=== PATIENT | female | born 1970 | race Two or more races ===

== ENCOUNTER 2020-01-20 19:47 | Inpatient (IN) | payer OTHER ==
[~2020-01-20] VITALS: Ht 162.6 cm; Wt 53.5 kg
--- NOTE | 2020-01-20 20:33 | NUR ---
[facility] TO ER BED 6. AWAKE BUT NON VERBAL. NOT RESP DISTRESS, BREATHING EVEN AND UNLABORED. BROUGHT IN FOR REPORT OF DESATURATION IN THE LOW 80%. PT ARRIVED ON THE SIMPLE MASK ON 10LPM. NOTED SATTING AT 96%-98%. PT IS ALSO NOTED WITH A RECTAL TEMP OF 99.8. MD WAS AT THE BEDSIDE FOR EVAL. ORDERS RECEIVED NOTED AND CARRIED OUT. IV LINE ALREADY ESTABLISHED BY EMS ON LFA 20G. ASSOCIATE MEDIA PLANNER AT BEDSIDE FOR BLOOD DRAW. COVID SWAB DONE AND SENT TO LAB
[2020-01-20 20:41] LABS: BASOPHILS % (AUTO) 0.2 % (0.0-2.0); EOSINOPHILS % (AUTO) 0.2 % (0.0-6.0); HEMATOCRIT 39 % (33-45); HEMOGLOBIN 12.8 g/dL (11.5-14.8); LYMPHOCYTES % (AUTO) 30.8 % (20.0-44.0); MEAN CORPUSCULAR HGB CONC 33 g/dl (31.0-36.0); MEAN CORPUSCULAR VOLUME 90 fL (82-100); MONOCYTES # (AUTO) 0.3 /CMM (0.1-1.30); NEUTROPHILS # (AUTO) 4.2 /CMM (1.8-8.9); NEUTROPHILS % (AUTO) 63.8 % (43.0-81.0); PLATELET COUNT (AUTO) 185 /CMM (150-450); WHITE BLOOD COUNT (AUTO) 6.6 K/uL (4.3-11.0)
[2020-01-20 21:02] LABS: ALANINE AMINOTRANSFERASE 157 U/L (12-78); ALKALINE PHOSPHATASE 100 U/L (46-116); ASPARTATE AMINOTRANSFERASE 74 U/L (15-37); B-TYPE NATRIURETIC PEPTIDE 149 PG/ML (0-125); BILIRUBIN,DIRECT 0.1 mg/dL (0.0-0.2); BILIRUBIN,TOTAL 0.5 mg/dL (0.2-1.0); CALCIUM, SERUM 9.1 mg/dL (8.5-10.1); CARBON DIOXIDE 28 mmol/L (21-32); CHLORIDE 104 mmol/L (98-107); CREATININE 0.4 mg/dL (0.6-1.3); GLUCOSE 112 mg/dL (74-106); POTASSIUM 3.4 mmol/L (3.5-5.1); SODIUM SERUM 142 mmol/L (136-145); UREA NITROGEN, BLOOD 20 mg/dL (7-18)
--- NOTE | 2020-01-20 21:34 | NUR ---
[facility] 12 MIDNIGHT SHOT BAGGER
--- NOTE | 2020-01-20 23:25 | NUR ---
CANCELLED TRANSPORTATION W/ [facility]
--- NOTE | 2020-01-20 23:38 | NUR ---
REPORT GIVEN TO BENNY GOLDBERG FOR SAURAV
[2020-01-21] VITALS (8 sets, daily range): BP systolic 95–109; BP diastolic 60–79
[2020-01-21] MEDS ORDERED: ACETAMINOPHEN 325 MG TABLET PO PRN
[2020-01-21] MEDS ORDERED: Z GUARD REMEDY 2 OZ OINT TP PRN
[2020-01-21] MEDS ORDERED: ONDANSETRON HCL/PF 4 MG/2 ML VIAL IVP PRN
--- NOTE | 2020-01-21 00:11 | NUR ---
PT TRANSFERRED TO ROOM VIA ACLS PROTOCOL
[2020-01-21 02:43] LABS: ABG BASE EXCESS 3.8 mmol/L; ABG OXYGEN SATURATION 96.5 % (92.0-98.5); ABG PH 7.476 (7.350-7.450); ABG PO2 89.7 mmHg (75.0-100.0); AaDO2 296.3 mmHg; COHb 0.4 % (0.5-1.5); MetHb 0.3 % (0.0-1.5); O2Hb 95.8 % (94.0-97.0); SITE, ABG Right Radial; VENT MODE, BG SIMPLE MASK 10L
[2020-01-21] MEDS ORDERED: ACET160E36 GT (02:49)
[2020-01-21] MEDS ORDERED: ASCO500C16 GT (02:49)
[2020-01-21] MEDS ORDERED: AMLO2.5T4 PO (02:49)
[2020-01-21] MEDS ORDERED: MULT-754 GT (02:49)
[2020-01-21] MEDS ORDERED: LACT-209 GT (02:49)
[2020-01-21] MEDS ORDERED: METO25TA6 PO (02:49)
[2020-01-21] MEDS ORDERED: HYDR-4384 GT (02:49)
[2020-01-21] MEDS ORDERED: ESCI10TA PO (02:49)
[2020-01-21] MEDS ORDERED: ZINC1CAP3 GT (02:49)
[2020-01-21] MEDS ORDERED: JEVITY 1.2 CAL 1,000 ML BOTTLE GT PRN (04:30)
[2020-01-21] MEDS ORDERED: BISA10SU11 RC (07:43)
[2020-01-21] MEDS ORDERED: MULT-447 GT (07:43)
[2020-01-21] MEDS ORDERED: POLY17PO4 GT (07:43)
[2020-01-21] MEDS ORDERED: GUAI100S11 GT (07:43)
[2020-01-21] MEDS ORDERED: HYDR-3976 GT (07:43)
[2020-01-21 08:02] LABS: BASOPHILS % (AUTO) 0.1 % (0.0-2.0); EOSINOPHILS % (AUTO) 0.1 % (0.0-6.0); HEMATOCRIT 35 % (33-45); HEMOGLOBIN 11.7 g/dL (11.5-14.8); LYMPHOCYTES % (AUTO) 23.6 % (20.0-44.0); MEAN CORPUSCULAR HGB CONC 33 g/dl (31.0-36.0); MEAN CORPUSCULAR VOLUME 90 fL (82-100); MONOCYTES # (AUTO) 0.4 /CMM (0.1-1.30); MONOCYTES % (AUTO) 4.9 % (2.0-12.0); NEUTROPHILS # (AUTO) 6.1 /CMM (1.8-8.9); NEUTROPHILS % (AUTO) 71.3 % (43.0-81.0); PLATELET COUNT (AUTO) 163 /CMM (150-450); RED BLOOD CELL COUNT(AUTO) 3.89 MIL/uL (4.0-5.2); WHITE BLOOD COUNT (AUTO) 8.6 K/uL (4.3-11.0)
[2020-01-21 08:18] LABS: CALCIUM, SERUM 8.9 mg/dL (8.5-10.1); CREATININE 0.4 mg/dL (0.6-1.3); POTASSIUM 3.4 mmol/L (3.5-5.1)
[2020-01-21 08:22] LABS: ALBUMIN 2.7 g/dL (3.4-5.0); BILIRUBIN,TOTAL 0.6 mg/dL (0.2-1.0); MAGNESIUM 2.2 mg/dL (1.8-2.4); PHOSPHORUS 3.5 mg/dL (2.5-4.9); TOTAL PROTEIN, SERUM 6.4 g/dL (6.4-8.2)
[2020-01-21 08:29] LABS: THYROID STIMULATING HORMONE 0.616 uIU/mL (0.358-3.74)
[2020-01-21] MEDS ORDERED: POTASSIUM CHLORIDE 20 MEQ POWDER PACKET GT ONE (10:00)
[2020-01-21] MEDS: CHOLECALCIFEROL 1,000 UNIT TABLET (VIT D3) GT SCH (10:37)
[2020-01-21] MEDS: ESCITALOPRAM OXALATE (10 MG) 10 MG TABLET PO SCH (10:37)
[2020-01-21] MEDS: ZINC SULFATE 220 MG CAPSULE GT SCH (10:37)
[2020-01-21] MEDS: DEXAMETHASONE SOD PHOSPHATE 10 MG/ML VIAL IV SCH (10:37)
[2020-01-21] MEDS: METOPROLOL TARTRATE 25 MG TABLET PO SCH ×2 (10:39→18:14)
[2020-01-21] MEDS: ENOXAPARIN SODIUM 40 MG/0.4 ML DISP.SYRIN SQ SCH (10:41)
--- NOTE | 2020-01-21 10:47 | NUR ---
[facility] [place] [phone] Staff states according to their records ,patient got her Flu Vaccine 01/12/2020
--- NOTE | 2020-01-21 11:14 | NUR ---
WOUND CARE CONSULT: REVIEWED CHART, NURSING DOCUMENTATION AND PHOTOS WHICH INDICATE RASH TO BUTTOCKS AND PERINEUM, INTACT DEEP TISSUE INJURY TO SACRUM AND ESCHAR TO BACK OF HEAD, ALL PRESENT ON ADMISSION. RECOMMENDATIONS MADE FOR WOUND CARE AND SKIN PROTECTION. RECOMMEND SURGICAL CONSULT. DR MAIRA THRASHER NOTIFIED OF CONSULT REQUEST. PT IS ON [facility]SE[facility] ISOFLEX LOW AIRLOSS BED. MD IN AGREEMENT WITH PLAN OF CARE.
[2020-01-21] MEDS: ACETYLCYSTEINE 20% SOLN 800 MG/4 ML VIAL NEB SCH ×2 (15:30→23:12)
[2020-01-21] MEDS: ALBUTEROL HALF STRENGTH 1.25 MG/3 ML VIAL.NEB NEB SCH ×2 (15:30→23:12)
--- NOTE | 2020-01-21 16:38 | NUR ---
RT NOTE PER COVID PROTOCOL NO AEROSOL WAS GIVEN
[2020-01-21] MEDS: CLOTRIMAZOLE 1% 15 GM TUBE TP SCH (18:14)
[2020-01-21] MEDS: JEVITY 1.2 CAL 1,000 ML BOTTLE GT PRN (18:20)
--- NOTE | 2020-01-21 19:29 | NUR ---
RN NOTES PATIENT IN BED RESTING NO SOB OR ACUTE DISTRESS NOTED. ALL DUE MEDICATIONS ADMINISTERED. ALL NEEDS MET. NO ACUTE CHANGES DURING AM SHIFT. SAFETY MEASURES IN PLACE. ENDORSED CARE TO PM SHIFT.
--- NOTE | 2020-01-21 19:35 | NUR ---
INFORMATION TECHNOLOGY INTERNSHIP OPENING NOTE: Patient in bed awake and oriented x2. Patient able to speak but in a soft voice. Patient breathing well on 2L Oxygen via nasal canula. SCDs on. No SOB or acute respiratory distress noted. Noted IV access on left forearm 20 gauge, dressing dry and intact, patent, no redness, or infiltration. Safety precaution is in place, bed is in the lowest level, bed is locked, alarm is on, side rails x2 are up, and call light is within reach. Will continue to monitor.
[2020-01-22] VITALS (7 sets, daily range): BP systolic 97–182; BP diastolic 63–98
--- NOTE | 2020-01-22 06:38 | NUR ---
ASSOCIATE PROFESSOR OF MUSIC CLOSING NOTE: Patient in bed comfortably awake. All needs were met. Patient is breathing well with no signs of respiratory distress or SOB. Safety measures is maintained, bed is in the lowest level, bed is locked, alarm is on, side rails x2 are up, and call light is within reach. Will endorse to next shift.
[2020-01-22] MEDS: ACETYLCYSTEINE 20% SOLN 800 MG/4 ML VIAL NEB SCH ×3 (07:35→23:05)
[2020-01-22] MEDS: ALBUTEROL HALF STRENGTH 1.25 MG/3 ML VIAL.NEB NEB SCH ×3 (07:35→23:05)
[2020-01-22 07:39] LABS: HEMATOCRIT 37 % (33-45); HEMOGLOBIN 12.2 g/dL (11.5-14.8); LYMPHOCYTES # (AUTO) 1.1 /CMM (0.8-4.8); MEAN CORPUSCULAR HGB CONC 33 g/dl (31.0-36.0); MEAN CORPUSCULAR VOLUME 90 fL (82-100); MONOCYTES # (AUTO) 0.3 /CMM (0.1-1.30); MONOCYTES % (AUTO) 5.3 % (2.0-12.0); NEUTROPHILS # (AUTO) 4.9 /CMM (1.8-8.9); NEUTROPHILS % (AUTO) 77.7 % (43.0-81.0); PLATELET COUNT (AUTO) 157 /CMM (150-450); WHITE BLOOD COUNT (AUTO) 6.3 K/uL (4.3-11.0)
--- NOTE | 2020-01-22 07:40 | NUR ---
RN OPENING NOTE Patient is resting in bed, A/ox1, able to open eyes when name is called. Tele monitor SR. Patient is bedbound, turned and repositioned. IV line in the LFA#20g is clean and intact flushing well. GTF running Jevity 1.2 @70mls/[id number], flushing well, with 5mls residual. Isolation precautions due to positive covid. Bed is in lowest position, side rails x3 in upright position, fall safety and aspiration precautions enforced. Will continue with plan of care.
[2020-01-22 08:07] LABS: CALCIUM, SERUM 9.6 mg/dL (8.5-10.1); CREATININE 0.4 mg/dL (0.6-1.3); POTASSIUM 3.9 mmol/L (3.5-5.1)
[2020-01-22] MEDS: ZINC SULFATE 220 MG CAPSULE GT SCH (08:21)
[2020-01-22] MEDS: DEXAMETHASONE SOD PHOSPHATE 10 MG/ML VIAL IV SCH (08:21)
[2020-01-22] MEDS: ESCITALOPRAM OXALATE (10 MG) 10 MG TABLET PO SCH (08:22)
[2020-01-22] MEDS: CHOLECALCIFEROL 1,000 UNIT TABLET (VIT D3) GT SCH (08:22)
[2020-01-22] MEDS: METOPROLOL TARTRATE 25 MG TABLET PO SCH ×2 (08:22→16:13)
[2020-01-22] MEDS: ENOXAPARIN SODIUM 40 MG/0.4 ML DISP.SYRIN SQ SCH (08:41)
[2020-01-22] MEDS: JEVITY 1.2 CAL 1,000 ML BOTTLE GT PRN (09:40)
[2020-01-22] MEDS: CLOTRIMAZOLE 1% 15 GM TUBE TP SCH ×2 (10:19→16:09)
[2020-01-22] MEDS: LEVOFLOXACIN (250MG) 250 MG TABLET PO SCH (10:31)
--- NOTE | 2020-01-22 16:17 | NUR ---
DIOMEDES called [facility] to provide more information regarding patient as patient reports to be alert and oriented x1. Supervisor Pipelines did not want to provide name but provide Administrators contact information Allie . Per grid trimmer, Allie is not in at the moment and may not answer work cell. SW to attempt tomorrow 01/22 to reach Allie to provide more information. SW to remain available for all needs regarding this patient.
--- NOTE | 2020-01-22 18:17 | NUR ---
RN CLOSING NOTE Patient is resting in bed, A/ox1, able to open eyes when name is called, can no head "yes" or "no". Tele monitor SR. Patient is bedbound, turned and repositioned, kept clean and dry, skin protection measures implemented, wound care as ordered. IV line in the LFA#20g is clean and intact flushing well. GTF running Jevity 1.2 @70mls/[id number], OFF @ 1400 ON @ 1800, flushing well, with 0mls residual. All patient needs met, all due medications given. Isolation precautions due to positive covid. Bed is in lowest position, side rails x3 in upright position, fall safety and aspiration precautions enforced. Will continue with plan of care.
[2020-01-23 00:38] VITALS: BP 118/78
[2020-01-23 04:34] VITALS: BP 138/79
[2020-01-23] MEDS: JEVITY 1.2 CAL 1,000 ML BOTTLE GT PRN ×2 (05:47→23:38)
--- NOTE | 2020-01-23 06:35 | NUR ---
TELEMETRY TECH NOTES PATIENT IN BED, ASLEEP, ALERT AND ORIENTED X 1. ABLE TO NOD HEAD. BREATHING EVEN AND UNLABORED ON 2L NC. SHOWS NO SIGNS OF ACUTE RESPIRATORY DISTRESS. NO ACUTE PAIN. TELE MONITOR SR. GTUBE RUNNING JEVITY 1.2 AT 70ML/HR. NO RESIDUALS. IV ON L FA 20G SL. SHOWS NO SIGNS OF INFILTRATION, NO REDNESS. ALL DUE MEDICATIONS GIVEN. ALL NEEDS ATTENDED TO. ISOLATION PRECAUTIONS IN PLACE. SAFETY PRECAUTIONS IN PLACE. BED IN LOWEST POSITION, LOCKED, AND CALL LIGHT KEPT WITHIN REACH. WILL ENDORSE TO ONCOMING NURSE.
--- NOTE | 2020-01-23 07:27 | NUR ---
TELE/RN OPENING NOTES RECEIVED PATIENT ON BED, PATIENT IN NO APPARENT RESPIRATORY DISTRESS NOTED. NO SIGN AND SYMPTOM OF PAIN NOTED. WILL CONTINUE TO MONITOR. Addendum: 01/23/20 at 0732 by RADHA MUKHERJEE RN DUPLICATE
--- NOTE | 2020-01-23 07:32 | NUR ---
TELE/RN OPENING NOTES RECEIVED PATIENT ON BED, AWAKE, ALERT AND ORIENTED X1. PATIENT IN NO APPARENT RESPIRATORY DISTRESS NOTED. TELE MONITOR IN PLACED READING SINUS TACH WITH ARRHYTHMIA 103 BPM. NO SIGN AND SYMPTOM OF PAIN NOTED. WILL CONTINUE TO MONITOR.
[2020-01-23] MEDS: ACETYLCYSTEINE 20% SOLN 800 MG/4 ML VIAL NEB SCH ×3 (07:35→23:30)
[2020-01-23] MEDS: ALBUTEROL HALF STRENGTH 1.25 MG/3 ML VIAL.NEB NEB SCH ×3 (07:35→23:30)
[2020-01-23 08:00] VITALS: BP 155/95
[2020-01-23] MEDS: ZINC SULFATE 220 MG CAPSULE GT SCH (08:22)
[2020-01-23] MEDS: CHOLECALCIFEROL 1,000 UNIT TABLET (VIT D3) GT SCH (08:22)
[2020-01-23] MEDS: ESCITALOPRAM OXALATE (10 MG) 10 MG TABLET PO SCH (08:23)
[2020-01-23] MEDS: ENOXAPARIN SODIUM 40 MG/0.4 ML DISP.SYRIN SQ SCH (08:29)
--- NOTE | 2020-01-23 08:30 | NUR ---
RT NOTE PER COVID PROTOCOL NO AEROSOL TXS GIVEN
[2020-01-23] MEDS: DEXAMETHASONE SOD PHOSPHATE 10 MG/ML VIAL IV SCH (08:52)
[2020-01-23] MEDS: METOPROLOL TARTRATE 25 MG TABLET PO SCH ×2 (08:54→17:18)
[2020-01-23] MEDS: CLOTRIMAZOLE 1% 15 GM TUBE TP SCH ×2 (09:10→17:18)
[2020-01-23] MEDS: LEVOFLOXACIN (250MG) 250 MG TABLET PO SCH (10:44)
[2020-01-23 12:00] VITALS: BP 137/87
[2020-01-23 16:00] VITALS: BP 131/86
--- NOTE | 2020-01-23 16:47 | NUR ---
RT NOTE PER COVID PROTOCOL NO AEROSOL TXS GIVEN
--- NOTE | 2020-01-23 19:30 | NUR ---
TARGET AIRCRAFT CONTROLLER NOTES PATIENT IN BED, AWAKE, ALERT AND ORIENTED X 1. ABLE TO NOD HEAD. BREATHING EVEN AND UNLABORED ON 2L NC. SHOWS NO SIGNS OF ACUTE RESPIRATORY DISTRESS. NO ACUTE PAIN. TELE MONITOR SR. GTUBE RUNNING JEVITY 1.2 AT 70ML/HR. NO RESIDUALS. IV ON L FA 20G SL. SHOWS NO SIGNS OF INFILTRATION, NO REDNESS. ISOLATION PRECAUTIONS IN PLACE. SAFETY PRECAUTIONS IN PLACE. BED IN LOWEST POSITION, LOCKED, AND CALL LIGHT KEPT WITHIN REACH. WILL CONTINUE TO MONITOR.
--- NOTE | 2020-01-23 19:31 | NUR ---
TELE/RN CLOSING NOTES PATIENT IS ON BED.PATIENT IN NO APPARENT RESPIRATORY DISTRESS NOTED. NO SIGN AND SYMPTOM OF PAIN NOTED. TELE MONITORING PLACE READING SR 62 BPM. IV ACCESS AT LEFT FOREARM # 20 G PATENT AND INTACT. G-TUBE FEEDING JEVITY 1.2 AT 70M ML/HR WAS TOLERATED WELL. SEEN AND EXAMINED BY MD WITH ORDERS MADE AND CARRIED OUT. ALL DUE MEDICATION WAS GIVEN. SAFETY PRECAUTIONS IN PLACED. BED IN LOWEST POSITION AND LOCKED. SIDERAILS UP X2. CALL LIGHT WITHIN REACH.WILL ENDORSED TO TRUSS MAKER FOR SAURAV.
[2020-01-23 20:00] VITALS: BP_SYST 122; BP_SYST 127; BP_DIAS 76
[2020-01-24] VITALS: BP 114/70
[2020-01-24 04:00] VITALS: BP 118/68
--- NOTE | 2020-01-24 06:31 | NUR ---
GRAPHIC PRE PRESS TRADES WORKER NOTES PATIENT IN BED, ASLEEP, ALERT AND ORIENTED X 1. ABLE TO NOD HEAD. BREATHING EVEN AND UNLABORED ON 2L NC. SHOWS NO SIGNS OF ACUTE RESPIRATORY DISTRESS. NO ACUTE PAIN. TELE MONITOR SR. GTUBE RUNNING JEVITY 1.2 AT 70ML/HR. NO RESIDUALS. IV ON L FA 20G SL. SHOWS NO SIGNS OF INFILTRATION, NO REDNESS. ALL DUE MEDICATIONS GIVEN. ALL NEEDS ATTENDED TO. ISOLATION PRECAUTIONS IN PLACE. REPOSITIONED Q2H. SAFETY PRECAUTIONS IN PLACE. BED IN LOWEST POSITION, LOCKED, AND CALL LIGHT KEPT WITHIN REACH. WILL ENDORSE TO ONCOMING NURSE.
[2020-01-24] MEDS: ACETYLCYSTEINE 20% SOLN 800 MG/4 ML VIAL NEB SCH ×3 (06:54→23:30)
[2020-01-24] MEDS: ALBUTEROL HALF STRENGTH 1.25 MG/3 ML VIAL.NEB NEB SCH ×3 (06:54→23:30)
--- NOTE | 2020-01-24 06:54 | NUR ---
RT RESP TX NOT GIVEN PATIENT IS COVID POSITIVE AND SHOULD NOT HAVE AEROSOLIZED TX'S. NO DISTRESS NOTED, PATIENT SLEEPING
[2020-01-24 07:06] LABS: BASOPHILS % (AUTO) 0.1 % (0.0-2.0); HEMATOCRIT 35 % (33-45); HEMOGLOBIN 11.7 g/dL (11.5-14.8); LYMPHOCYTES # (AUTO) 0.9 /CMM (0.8-4.8); LYMPHOCYTES % (AUTO) 24.8 % (20.0-44.0); MEAN CORPUSCULAR HGB CONC 33 g/dl (31.0-36.0); MEAN CORPUSCULAR VOLUME 90 fL (82-100); MONOCYTES # (AUTO) 0.5 /CMM (0.1-1.30); MONOCYTES % (AUTO) 14.3 % (2.0-12.0); NEUTROPHILS # (AUTO) 2.1 /CMM (1.8-8.9); NEUTROPHILS % (AUTO) 60.8 % (43.0-81.0); PLATELET COUNT (AUTO) 176 /CMM (150-450); RED BLOOD CELL COUNT(AUTO) 3.91 MIL/uL (4.0-5.2); WHITE BLOOD COUNT (AUTO) 3.5 K/uL (4.3-11.0)
[2020-01-24 07:25] LABS: CALCIUM, SERUM 9.1 mg/dL (8.5-10.1); CREATININE 0.4 mg/dL (0.6-1.3); POTASSIUM 3.9 mmol/L (3.5-5.1)
--- NOTE | 2020-01-24 07:38 | NUR ---
RN CLOSING NOTE Patient is resting in bed, A/ox1, able to open eyes when name is called. Tele monitor SR 70s. Patient is bedbound, turned and repositioned. IV line in the LFA#20g is clean and intact flushing well. GTF running Jevity 1.2 @70mls/[id number], flushing well, with 0ml residual. Isolation precautions due to positive covid. Bed is in lowest position, side rails x3 in upright position, fall safety and aspiration precautions enforced. Will continue with plan of care. Addendum: 01/24/20 at 0949 by JARETT DEJESUS RN *OPENING* NOTE
[2020-01-24 08:00] VITALS: BP 136/85
[2020-01-24] MEDS: CHOLECALCIFEROL 1,000 UNIT TABLET (VIT D3) GT SCH (09:14)
[2020-01-24] MEDS: ESCITALOPRAM OXALATE (10 MG) 10 MG TABLET PO SCH (09:14)
[2020-01-24] MEDS: METOPROLOL TARTRATE 25 MG TABLET PO SCH ×2 (09:14→16:58)
[2020-01-24] MEDS: ZINC SULFATE 220 MG CAPSULE GT SCH (09:15)
[2020-01-24] MEDS: DEXAMETHASONE SOD PHOSPHATE 10 MG/ML VIAL IV SCH (09:15)
[2020-01-24] MEDS: ENOXAPARIN SODIUM 40 MG/0.4 ML DISP.SYRIN SQ SCH (09:25)
[2020-01-24] MEDS: CLOTRIMAZOLE 1% 15 GM TUBE TP SCH ×2 (09:39→17:03)
--- NOTE | 2020-01-24 09:49 | NUR ---
RN NOTE GT residual is >80cc at this time. Held GTF for now and will continue to monitor.
[2020-01-24] MEDS ORDERED: ALBUTEROL SULFATE INH 18 GM HFA.AER.AD IH PRN (10:00)
[2020-01-24] MEDS: LEVOFLOXACIN (250MG) 250 MG TABLET PO SCH (11:19)
[2020-01-24 12:00] VITALS: BP 141/91
--- NOTE | 2020-01-24 14:17 | NUR ---
RT RESP TX NOT GIVEN PATIENT IS COVID POSITIVE AND SHOULD NOT HAVE AEROSOLIZED TX'S. NO DISTRESS NOTED.
[2020-01-24 16:00] VITALS: BP 128/69
[2020-01-24] MEDS: JEVITY 1.2 CAL 1,000 ML BOTTLE GT PRN (18:01)
--- NOTE | 2020-01-24 18:45 | NUR ---
RN CLOSING NOTE Patient is resting in bed, A/ox1, able to open eyes when name is called. Tele monitor SR 70s. Patient is bedbound, turned and repositioned. IV line in the LFA#20g is clean and intact flushing well. GTF running Jevity 1.2 @70mls/[id number] (OFF AT 1400, ON AT 1800), flushing well, with 10ml residual. All patient needs met, all due medications given, patient kept clean and dry throughout shift. Isolation precautions due to positive covid. Bed is in lowest position, side rails x3 in upright position, fall safety and aspiration precautions enforced. Will endorse to eyelet riveter for SAURAV.
--- NOTE | 2020-01-24 19:30 | NUR ---
SENIOR OFFICE SUPPORT ASSISTANT SOSA NOTES RECEIVED ON BED A/O X1,MOUTH WORDS ONLY,GT FEEDING IN PROGRESS AT 70ML/HR RATE VIA FEEDING PUMP.NOTED 20ML RESIDUAL VOLUME.HOB ELEVATED FOR ASPIRATION PRECAUTION,DVT IN PUMP IN USED ON BOTH LEGS FOR DVT PROPHYLAXIS.ON LOVENOX WELL.SALINE LOCK LFA INTACT AND PATENT.ISOLATION PRECAUTION FOR COVID POSITIVE BOTH RAPID AND PCR.WILL CONTINUE TO MONITOR STATUS.
[2020-01-24 20:00] VITALS: BP 124/73
--- NOTE | 2020-01-24 20:06 | NUR ---
TENNIS CAMP INSTRUCTOR NOTES SR-78 ON TELE MONITOR
[2020-01-25] VITALS: BP 124/79
--- NOTE | 2020-01-25 01:00 | NUR ---
SENIOR INFORMATION SECURITY CONSULTANT NOTES GT FEEDING FLUSHED WITH WATER 120ML,WITH 10ML RESIDUAL VOLUME.
[2020-01-25 04:00] VITALS: BP 137/70
--- NOTE | 2020-01-25 04:00 | NUR ---
LOCAL AREA NETWORK ADMINISTRATOR NOTES MORNING CARE RENDERED TOLERATED WELL
--- NOTE | 2020-01-25 05:00 | NUR ---
CLOTHES SHAKER NOTES NOTED COUGHING,REPOSITION,HOB ELEVATED.
--- NOTE | 2020-01-25 06:30 | NUR ---
MUTUAL FUND SALES AGENT NOTES ON BED WITH HOB ELEVATED,GT FEEDING IN PROGRESS,MEPILEX ON SACRAL AREA CHANGED.DVT PUMP IN USED,VITAL SIGNS STABLE.FULL CODE.WILL ENDORSE TO DAY NURSE FOR SAURAV.
[2020-01-25 06:58] LABS: C-REACTIVE PROTEIN 1.1 mg/dL (0.0-0.9)
--- NOTE | 2020-01-25 07:07 | NUR ---
TRACK SUPERVISOR OPENING NOTES RECEIVED PT AWAKE IN BED AT THIS TIME. PT IS A/O X1. PT ABLE TO MOUTH WORDS. NO SOB NOTED, NO S/S OF ANY ACUTE DISTRESS NOTED. NO C/O PAIN AT THIS TIME. PT ON EXTERNAL TELE VICE PRESIDENT OF MARKETING READING SR IN THE 70S. RESPIRATIONS ARE EVEN AND UNLABORED WITH EQUAL RISE AND FALL IN CHEST. IV ACCESS NOTED IN LFA G#20, INTACT, PATENT AND FLUSHING WELL. PT NOTED WITH GTUBE IN LACE, NO RESIDUAL NOTED AND FLUSHINF WELL. SAFETY PRECAUTION IN PLACE AND MAINTAINED AT ALL TIMES. BED IN LOWEST LOCKED POSITION, HOB ELEVATED, SIDE RAILS UP X 2, CALL LIGHT WITHIN REACH. WILL CONTINUE TO MONITOR
[2020-01-25] MEDS: ACETYLCYSTEINE 20% SOLN 800 MG/4 ML VIAL NEB SCH ×2 (07:30→15:30)
[2020-01-25] MEDS: ALBUTEROL HALF STRENGTH 1.25 MG/3 ML VIAL.NEB NEB SCH ×2 (07:30→15:30)
[2020-01-25 07:47] LABS: CALCIUM, SERUM 9.2 mg/dL (8.5-10.1); CREATININE 0.4 mg/dL (0.6-1.3); POTASSIUM 4.4 mmol/L (3.5-5.1)
[2020-01-25 08:23] VITALS: BP 144/86
[2020-01-25] MEDS: ZINC SULFATE 220 MG CAPSULE GT SCH (08:45)
[2020-01-25] MEDS: DEXAMETHASONE SOD PHOSPHATE 10 MG/ML VIAL IV SCH (08:45)
[2020-01-25] MEDS: CHOLECALCIFEROL 1,000 UNIT TABLET (VIT D3) GT SCH (08:45)
[2020-01-25] MEDS: METOPROLOL TARTRATE 25 MG TABLET PO SCH (08:45)
[2020-01-25] MEDS: ESCITALOPRAM OXALATE (10 MG) 10 MG TABLET PO SCH (08:46)
[2020-01-25] MEDS: ENOXAPARIN SODIUM 40 MG/0.4 ML DISP.SYRIN SQ SCH (08:47)
[2020-01-25] MEDS: CLOTRIMAZOLE 1% 15 GM TUBE TP SCH (08:48)
[2020-01-25] MEDS: LEVOFLOXACIN (250MG) 250 MG TABLET PO SCH (10:39)
[2020-01-25 12:00] VITALS: BP 126/84
--- NOTE | 2020-01-25 12:59 | NUR ---
PT NOTED WITH TEMP 99.3. COOLING MEASURES IN PLACE, ICE PACK UNDER ARMS, ROOM KEPT COOL, COVERS REMOVED. TYLENOL 650MG PO PRN FOR FEVER ADMINISTERED PER ORDER AT THIS TIME. WILL CONTINUE TO MONITOR
--- NOTE | 2020-01-25 16:01 | NUR ---
RT PT IS NOT GIVEN BREATHING TX AT THIS TIME DUE TO COVID 19 PROTOCOL.
--- NOTE | 2020-01-25 16:10 | NUR ---
WICKER MOLDED CANDLES NOTES PATIENT DISCHARGED TO [facility] AT THIS TIME. REPORT GIVEN TO BENNY SOLIS AT [facility]. PT TRANSPORTED VIA GURNEY ACCOMPANIED BY TWO TRANSPORTERS. PICTURES TAKEN AND FILED IN CHART. IV ACCESS REMOVED, PRESSURE APPLIED, SECURE WITH GAUZE AND TAPE. NO SIGN OF BLEEDING OR INFILTRATION NOTED. DISCHARGE INSTRUCTIONS GIVEN.
== END 2020-01-25 16:10 | DRG 137 ==
LOC: ER 19:49 → TELE2 23:29
PROVIDERS: ADMIT Nurse Practitioner Acute Care; ATTEND Nurse Practitioner Acute Care
DX: U07.1 COVID-19 (principal); N17.0 Acute kidney failure with tubular necrosis; G93.41 Metabolic encephalopathy; G93.1 Anoxic brain damage, not elsewhere classified; E43 Unspecified severe protein-calorie malnutrition; J12.89 Other viral pneumonia; Z87.820 Personal history of traumatic brain injury; V89.2XXS Person injured in unspecified motor-vehicle accident, traffic, sequela; Z91.018 Allergy to other foods; Z93.1 Gastrostomy status; D68.59 Other primary thrombophilia; E87.6 Hypokalemia; Z79.899 Other long term (current) drug therapy; R13.10 Dysphagia, unspecified; Z74.09 Other reduced mobility; J98.11 Atelectasis; T17.990A Other foreign object in respiratory tract, part unspecified in causing asphyxiation, initial encounter; X58.XXXA Exposure to other specified factors, initial encounter; Y92.129 Unspecified place in nursing home as the place of occurrence of the external cause; L89.156 Pressure-induced deep tissue damage of sacral region; J96.21 Acute and chronic respiratory failure with hypoxia; S42.001S Fracture of unspecified part of right clavicle, sequela; X58.XXXS Exposure to other specified factors, sequela
CPT/HCPCS: 36415; 36600; 71045-TC; 80048-TC; 80053-TC; 80061-TC; 80076-TC; 82803-TC; 83735-TC; 83880; 84100-TC; 84443-TC; 84484-TC; 84703-TC; 85025-TC; 85378-TC; 86140-TC; 87040-TC; 87081-TC; 92521; 92526; 93308-TC; A6403; C9803; G0378; J1100; J1650; U0003